=== PATIENT | female | born 1990 | race Caucasian/White ===

== ENCOUNTER 2016-08-20 17:52 | Emergency (ER) | payer OTHER ==
[2016-08-20 18:54] VITALS: BMI 45.5
--- NOTE | 2016-08-20 19:51 | PDOC ---
History of Present Illness - General History Source: Patient Exam Limitations: No Limitations - History of Present Illness Initial Comments: 08/20/16 20:22 The patient is a 25 year old female with significant past medical history of asthma and migraines who presents to the ED with 1 day of right-sided headache. Patient describes her headache as sharp and 9/10. She reports her headache is different from her usual migraine headaches, which are normally localized to the mid frontal region. She states taking a tylenol with no improvement and then went to bed. After waking up today, her headache worsen and she felt dizzy and intermittent numbness and tingling to her lower extremities bilaterally. She also reports nausea and 2 episodes of vomiting. Her last episode of vomiting she noted some bright red blood. She denies abdominal pain and diarrhea. Her LMP was 08/09. The patient denies fever, chills, cough, SOB, chest pain, and palpitations. Allergies: NKDA Social History: Denies alcohol, tobacco, or drug use reported. Past Surgical History: None reported PCP: Dr. Alisson Martinez <Barb Melo - Last Filed: 08/20/16 20:22> - General History Source: Patient <Leeanna Galvezan - Last Filed: 08/20/16 22:04> - General Chief Complaint: Nausea/Vomiting Stated Complaint: NAUSEA/VOMITING Time Seen by Provider: 08/20/16 19:34 Past History <Barb Melo - Last Filed: 08/20/16 20:22> - Past Medical History Asthma: Yes - Immunization History Immunization Up to Date: No - Psycho/Social/Smoking Cessation Hx Anxiety: Yes Suicidal Ideation: No Smoking Status: No Smoking History: Never smoked Number of Cigarettes Smoked Daily: 0 Hx Alcohol Use: No Drug/Substance Use Hx: No Substance Use Type: None <Yong Galvez - Last Filed: 08/20/16 22:04> - Past Medical History Allergies/Adverse Reactions: Allergies Allergy/AdvReac Type Severity Reaction Status Date / Time No Known Allergies Allergy Verified 08/20/16 18:54 Home Medications: Ambulatory Orders Ibuprofen 800 mg PO TID #30 tablet 08/20/16 Metoclopramide HCl [Reglan -] 10 mg PO TID #30 tablet 08/20/16 Review of Systems - Review of Systems Able to Perform ROS?: Yes Comments:: 08/20/16 20:23 CONSTITUTIONAL: Absent: fever, no chills, no fatigue EYES: Absent: visual changes ENT: Absent: ear pain, no sore throat CARDIOVASCULAR: Absent: chest pain, no palpitations RESPIRATORY: Absent: cough, no SOB GI: +nausea, vomiting Absent: abdominal pain, no constipation, no diarrhea GENITOURINARY: Absent: dysuria, no frequency, no hematuria MUSKULOSKELETAL: Absent: back pain, no arthralgia, no myalgia SKIN: Absent: rash NEURO: +right sided headache, dizziness, numbness and tingling to lower extremities bilaterally <Barb Melo - Last Filed: 08/20/16 20:22> *Physical Exam - Vital Signs Last Vital Signs Temp Pulse Resp BP Pulse Ox 98.3 F 71 20 95/57 100 08/20/16 18:51 08/20/16 18:51 08/20/16 18:51 08/20/16 18:51 08/20/16 18:51 - Physical Exam Comments: 08/20/16 20:23 GENERAL: Well-appearing, well-nourished. Minimal distress. HEENT: Normocephalic, atraumatic. PERRL, EOM intact. CARDIOVASCULAR: Normal S1, S2. Regular rate and rhythm. PULMONARY: Clear to auscultation bilaterally. ABDOMEN: Soft, non-distended, non-tender. EXTREMITIES: Normal ROM in all four extremities. No gross deformities. SKIN: Warm, dry. No rash NEUROLOGICAL: No focal neurological deficits. <Barb Melo - Last Filed: 08/20/16 20:22> - Vital Signs Last Vital Signs Temp Pulse Resp BP Pulse Ox 98.3 F 71 20 95/57 100 08/20/16 18:51 08/20/16 18:51 08/20/16 18:51 08/20/16 18:51 08/20/16 18:51 <Yong Galvez - Last Filed: 08/20/16 22:04> Medical Decision Making - Medical Decision Making 08/20/16 22:03 Dr. Galvez: The scribe's documentation has been prepared under my direction and personally reviewed by me in its entirery. I confirm that the note above accurately reflects all work, treatment, procedures, and medical decision making performed by me. Head CT is negative. Patient feels better after treatment in the department. Will discharge <Yong Galvez - Last Filed: 08/20/16 22:04> *DC/Admit/Observation/Transfer - Attestations Scribe Attestion: 08/20/16 20:24 Documentation prepared by Barb Melo, acting as medical affairs specialist for Yong Galvez MD <Barb Melo - Last Filed: 08/20/16 20:22> - Discharge Dispostion Admit: No <Yong Galvez - Last Filed: 08/20/16 22:04> Diagnosis at time of Disposition: Nausea & vomiting Qualifiers: Vomiting type: unspecified Headache Qualifiers: Headache type: unspecified Intractability: not intractable - Discharge Dispostion Disposition: HOME Condition at time of disposition: Stable - Prescriptions Prescriptions: Ibuprofen 800 mg PO TID #30 tablet Metoclopramide HCl [Reglan -] 10 mg PO TID #30 tablet - Referrals Referrals: Alisson Martinez MD [Primary Care Provider] - - Patient Instructions Printed Discharge Instructions: DI for Nausea -- Adult, DI for Vomiting -- Adult, DI for Headache
[2016-08-20] MEDS ORDERED: METOCLOPRAMIDE HCL 10 MG TABLET (FP) PO ONE ×2 (20:17→20:25)
[2016-08-20 20:33] LABS: PH,URINE 6.5 (5.0-8.0); URINE APPEARANCE CLEAR; URINE BILIRUBIN NEGATIVE (NEGATIVE); URINE BLOOD NEGATIVE (NEGATIVE); URINE COLOR YELLOW; URINE GLUCOSE (UA) NEGATIVE (NEGATIVE); URINE KETONE NEGATIVE (NEGATIVE); URINE LEUK ESTERASE NEGATIVE (NEGATIVE); URINE NITRITE NEGATIVE (NEGATIVE); URINE PROTEIN TRACE (NEGATIVE); URINE UROBILINOGEN 0.2 E.U/dl E.U./dl (0.2-1.0)
[2016-08-20] MEDS ORDERED: IBUPROFEN 400 MG TABLET (FP) PO ONE ×2 (22:00→22:42)
[2016-08-20 22:53] VITALS: BP 138/74; PULSE 80; TEMP 98.6
== END 2016-08-20 22:52 | disposition home or self-care (01) ==
LOC: JER 17:52
DX: R11.2 Nausea with vomiting, unspecified (principal); J45.909 Unspecified asthma, uncomplicated
CPT/HCPCS: 70450-TC; 81003; 84703; 99283-25

== ENCOUNTER 2020-06-23 07:36 | Emergency (ER) | payer OTHER ==
[2020-06-23 08:00] VITALS: BP 103/49; PULSE 85; TEMP 97.8; BMI 37.8
[2020-06-23] MEDS ORDERED: ALBUTEROL SO4 HFA INHALER IH ONE ×2 (08:24→08:28)
[2020-06-23] MEDS ORDERED: ACETAMINOPHEN 325 MG TABLET (FP) PO ONE (08:25)
[2020-06-23] MEDS ORDERED: AMOXICILLIN 500 MG CAPSULE (FP) PO ONE (08:26)
[2020-06-23] MEDS ORDERED: ACETAMINOPHEN 325 MG TABLET (FP) ONE (08:27)
[2020-06-23] MEDS ORDERED: AMOX TR/POT CLAV 875MG/125MG TABLETS (FP) ONE (08:32)
[2020-06-23] MEDS ORDERED: AMOX TR/POT CLAV 875MG/125MG TABLETS (FP) PO ONE (08:36)
== END 2020-06-23 09:20 | disposition home or self-care (01) ==
LOC: JER 07:36
DX: H65.195 Other acute nonsuppurative otitis media, recurrent, left ear (principal); J06.9 Acute upper respiratory infection, unspecified
CPT/HCPCS: 87070; 87804; 87880; 99283-25; C9803; U0003

== ENCOUNTER 2022-12-25 13:17 | Emergency (ER) | payer OTHER ==
[2022-12-25 13:42] VITALS: BP 93/63; PULSE 78; RESP 18; TEMP 97.9; BMI 47.5
[2022-12-25] MEDS ORDERED: ACETAMINOPHEN 500 MG TABLET (FP) PO ONE (14:22)
[2022-12-25] MEDS ORDERED: LIDOCAINE 5% TOPICAL PATCH TP ONE (14:22)
[2022-12-25] MEDS ORDERED: IBUPROFEN 600 MG TABLET (FP) PO ONE ×2 (14:22→14:23)
[2022-12-25] MEDS ORDERED: LIDOCAINE 5% TOPICAL PATCH ONE (14:23)
[2022-12-25] MEDS ORDERED: ACETAMINOPHEN 500 MG TABLET (FP) ONE (14:24)
[2022-12-25] MEDS ORDERED: LIDOCAINE PATCH REMOVAL MC SCH (22:00)
== END 2022-12-25 14:55 | disposition home or self-care (01) ==
LOC: JERFT 13:17
DX: S39.012A Strain of muscle, fascia and tendon of lower back, initial encounter (principal); M79.604 Pain in right leg; W01.0XXA Fall on same level from slipping, tripping and stumbling without subsequent striking against object, initial encounter
CPT/HCPCS: 99283-25

== ENCOUNTER 2024-04-28 20:24 | Emergency (ER) | payer BC, OTHER ==
[2024-04-28 20:34] VITALS: BP 98/67; PULSE 92; RESP 18; TEMP 98.5; BMI 46.8
[2024-04-28] MEDS ORDERED: ONDANSETRON 4 MG/2 ML VIAL ONE (21:26)
[2024-04-28] MEDS ORDERED: ACETAMINOPHEN INJECTION 100 ML ONE (21:26)
[2024-04-28] MEDS: ONDANSETRON 4 MG/2 ML VIAL IVPB ONE (21:38)
[2024-04-28] MEDS: ACETAMINOPHEN 1000 MG/100 ML BAG IVPB ONE (21:39)
[2024-04-28] MEDS: SODIUM CHLORIDE 0.9% 500 ML INFUS.BAG IV ONE (21:39)
[2024-04-28 21:44] LABS: BASO % 0.3 % (0-2.0); EOS % 0.9 % (0-4.5); HEMATOCRIT 40.8 % (32.4-45.2); HEMOGLOBIN 12.7 GM/dL (10.7-15.3); LYMPH % 4.7 % (8-40); MCHC 31.1 g/dl (32.0-36.0); MEAN CELL VOLUME 70.9 fl (80-96); MEAN PLT VOLUME 8.1 fl (7.5-11.1); MONO % 4.7 % (3.8-10.2); NEUT % 89.4 % (42.8-82.8); PLATELET COUNT 322 10^3/uL (134-434); RBC 5.75 M/mm3 (3.60-5.2); RDW 17.2 % (11.6-15.6); WHITE BLOOD COUNT 16.2 K/mm3 (4.0-10.0)
[2024-04-28 22:00] LABS: POTASSIUM 5.6 mmol/L (3.5-5.1)
[2024-04-28 22:03] LABS: ALBUMIN 3.6 g/dl (3.4-5.0); BLOOD UREA NITROGEN 16.8 mg/dL (7-18); CALCIUM 8.8 mg/dL (8.5-10.1)
[2024-04-28 22:06] LABS: CREATININE 0.7 mg/dL (0.55-1.3)
[2024-04-28 22:08] LABS: BILIRUBIN,TOTAL 0.4 mg/dL (0.2-1); TOT PROT 8.1 g/dl (6.4-8.2)
[2024-04-28 22:24] LABS: ANISOCYTOSIS 2+; MACROCYTOSIS 0; OVALOCYTE 1+; TARGET CELLS 1+
[2024-04-28 22:57] LABS: HIV INTERPRETATION NEGATIVE (NEGATIVE)
[2024-04-28] MEDS ORDERED: KETOROLAC TROMETHAMINE 15 MG/ML VIAL ONE (23:14)
[2024-04-28] MEDS: KETOROLAC TROMETHAMINE 15 MG/ML VIAL IVPUSH ONE (23:19)
[2024-04-29] MEDS ORDERED: KETOROLAC TROMETHAMINE 15 MG/ML VIAL ONE (03:27)
[2024-04-29] MEDS ORDERED: METOCLOPRAMIDE HCL INJECTION 10 MG/2 ML VIAL ONE (03:27)
[2024-04-29] MEDS: METOCLOPRAMIDE HCL INJECTION 10 MG/2 ML VIAL IVPB ONE (03:50)
[2024-04-29] MEDS: KETOROLAC TROMETHAMINE 15 MG/ML VIAL IVPUSH ONE (03:50)
== END 2024-04-29 04:29 | disposition home or self-care (01) ==
LOC: JER 20:24
PROC: 3E033NZ Introduction of Analgesics, Hypnotics, Sedatives into Peripheral Vein, Percutaneous Approach (ICD-10-PCS; principal; 2024-04-28)
PROC: 3E0333Z Introduction of Anti-inflammatory into Peripheral Vein, Percutaneous Approach (ICD-10-PCS; 2024-04-28)
PROC: 3E0333Z Introduction of Anti-inflammatory into Peripheral Vein, Percutaneous Approach (ICD-10-PCS; 2024-04-29)
PROC: 3E033GC Introduction of Other Therapeutic Substance into Peripheral Vein, Percutaneous Approach (ICD-10-PCS; 2024-04-29)
PROC: 3E033GC Introduction of Other Therapeutic Substance into Peripheral Vein, Percutaneous Approach (ICD-10-PCS; 2024-04-29)
DX: R10.9 Unspecified abdominal pain (principal); Z20.822 Contact with and (suspected) exposure to COVID-19
CPT/HCPCS: 0241U-QW; 36415; 71046-TC-FY; 74177-TC; 80053; 83690; 84484; 84703; 85025; 86803; 87389; 93005; 93010; 99285-25; J0131